=== PATIENT | male | born 1980 | race Caucasian/White ===

== ENCOUNTER 2024-07-09 14:32 | Inpatient (IN) | payer OTHER ==
[2024-07-09 15:14] VITALS: BMI 22.5
[2024-07-09] MEDS ORDERED: POLYETHYLENE GLYCOL (HEALTHYLAX) 3350 17 GM PACKET PO PRN (17:18)
[2024-07-09] MEDS ORDERED: ONDANSETRON *ODT* 4 MG TABLET SL PRN (17:18)
[2024-07-09] MEDS ORDERED: BENZONATATE 200 MG CAPSULE PO PRN (17:18)
[2024-07-09] MEDS ORDERED: NALOXONE (NARCAN) HCL 4 MG/0.1 ML SPRAY NS PRN (17:18)
[2024-07-09] MEDS ORDERED: BISMUTH SUBSALICYLATE 524 MG/30 ML PO PRN (17:18)
[2024-07-09] MEDS ORDERED: IBUPROFEN 400 MG TABLET (FP) PO PRN (17:18)
[2024-07-09] MEDS ORDERED: MAGNESIUM HYDROX 2400MG/30ML ORAL SUSPENSION 30 ML CUP PO PRN (17:18)
[2024-07-09] MEDS ORDERED: guaiFENesin 600 MG TABLET.ER (FP) PO PRN (17:18)
[2024-07-09] MEDS ORDERED: BENZOCAINE/MENTHOL (CHLORASEPTIC ) LOZENGE MM PRN (17:18)
[2024-07-09] MEDS ORDERED: DICYCLOMINE HCL 10 MG CAPSULE PO PRN (17:18)
[2024-07-09] MEDS: hydrOXYzine PAMOATE 25 MG CAPSULE (FP) PO PRN (18:16)
[2024-07-09] MEDS: MELATONIN 5 MG TABLETS PO SCH (23:40)
[2024-07-09] MEDS: THIAMINE 100 MG TABLET PO SCH (23:41)
[2024-07-10] MEDS ORDERED: methaDONE HCL 10 MG TABLET (FOR DETOX USE ONLY) PO PRN (09:07)
[2024-07-10] MEDS: methaDONE HCL 10 MG TABLET (FOR DETOX USE ONLY) PO ONE (09:45)
[2024-07-10] MEDS: PRENATAL VITAMINS W/ FOLIC ACID TABLET (FP) PO SCH (09:46)
[2024-07-10 12:34] LABS: CHLORIDE 101 mmol/L (98-107); POTASSIUM 4.2 mmol/L (3.5-5.1); SODIUM 135 mmol/L (136-145)
[2024-07-10 12:43] LABS: CALCIUM 8.8 mg/dL (8.5-10.1)
[2024-07-10 12:44] LABS: ALBUMIN 2.9 g/dl (3.4-5.0); ANION GAP 6 mmol/L (4-13); BLOOD UREA NITROGEN 10.9 mg/dL (7-18); CO2 28 mmol/L (21-32); GLUCOSE,RANDOM 103 mg/dL (74-106)
[2024-07-10 12:46] LABS: SGPT/ALT 42 U/L (13-61)
[2024-07-10 12:48] LABS: CREATININE 0.6 mg/dL (0.55-1.3); SGOT/AST 27 U/L (15-37)
[2024-07-10 12:49] LABS: BILIRUBIN,TOTAL 0.3 mg/dL (0.2-1); TOT PROT 7.7 g/dl (6.4-8.2)
[2024-07-10 12:51] LABS: ALK PHOS 84 U/L (45-117)
[2024-07-10 12:52] LABS: HEMATOCRIT 36.8 % (35.4-49); HEMOGLOBIN 12.1 GM/dL (11.7-16.9); MCH 27.8 pg (25.7-33.7); MCHC 32.9 g/dl (32.0-35.9); MEAN CELL VOLUME 84.4 fl (80-96); MEAN PLT VOLUME 7.3 fl (7.5-11.1); PLATELET COUNT 559 10^3/uL (134-434); RBC 4.36 M/mm3 (4.00-5.60); RDW 14.4 % (11.9-15.9); WHITE BLOOD COUNT 11.7 K/mm3 (4.0-10.0)
[2024-07-10] MEDS: METHOCARBAMOL 500 MG TABLET PO PRN (19:26)
[2024-07-10] MEDS: cloNIDine HCL 0.1 MG TABLET PO PRN (22:30)
[2024-07-11] MEDS: IBUPROFEN 600 MG TABLET (FP) PO PRN (07:08)
[2024-07-11] MEDS: NICOTINE 21 MG/24 HOURS TOPICAL PATCH TD SCH (13:25)
[2024-07-11] MEDS: ERYTHROMYCIN 0.5% OPHTHALMIC OINTMENT 3.5 GM TUBE OD SCH (15:50)
[2024-07-12] MEDS: methaDONE HCL 10 MG TABLET (FOR DETOX USE ONLY) PO ONE (09:22)
[2024-07-12] MEDS: MAG HYDROX/AL HYDROX/SIMETH 30 ML UNIT-DOSE CUP PO PRN (09:43)
[2024-07-12 11:25] LABS: BASO % 0.6 % (0-2.0); EOS % 0.4 % (0-4.5); HEMATOCRIT 38.6 % (35.4-49); HEMOGLOBIN 12.6 GM/dL (11.7-16.9); LYMPH % 15.6 % (8-40); MCH 27.6 pg (25.7-33.7); MCHC 32.5 g/dl (32.0-35.9); MEAN CELL VOLUME 84.8 fl (80-96); MEAN PLT VOLUME 7.3 fl (7.5-11.1); MONO % 3.9 % (3.8-10.2); NEUT % 79.5 % (42.8-82.8); PLATELET COUNT 520 10^3/uL (134-434); POTASSIUM 3.8 mmol/L (3.5-5.1); RDW 14.7 % (11.9-15.9)
[2024-07-12 11:29] LABS: ALBUMIN 2.8 g/dl (3.4-5.0); CALCIUM 8.4 mg/dL (8.5-10.1)
[2024-07-12 11:30] LABS: BLOOD UREA NITROGEN 11.8 mg/dL (7-18)
[2024-07-12 11:33] LABS: CREATININE 0.8 mg/dL (0.55-1.3)
[2024-07-12 11:34] LABS: BILIRUBIN,TOTAL 0.4 mg/dL (0.2-1); TOT PROT 7.4 g/dl (6.4-8.2)
[2024-07-12 11:53] LABS: RBC 4.55 M/mm3 (4.00-5.60); WHITE BLOOD COUNT 13.3 K/mm3 (4.0-10.0)
[2024-07-12] MEDS: LOPERAMIDE HCL 2 MG CAPSULE PO PRN (14:41)
[2024-07-12] MEDS: NICOTINE POLACRILEX 2 MG GUM BUC PRN (20:52)
[2024-07-13 11:04] LABS: PH,URINE 5.5 (5.0-8.0); URINE APPEARANCE CLEAR; URINE BILIRUBIN NEGATIVE (NEGATIVE); URINE COLOR YELLOW; URINE GLUCOSE (UA) NEGATIVE (NEGATIVE); URINE KETONE NEGATIVE (NEGATIVE); URINE LEUK ESTERASE NEGATIVE (NEGATIVE); URINE NITRITE NEGATIVE (NEGATIVE); URINE PROTEIN TRACE (NEGATIVE); URINE UROBILINOGEN 0.2 mg/dL (0.2-1.0)
[2024-07-13] MEDS: ACETAMINOPHEN 325 MG TABLET (FP) PO PRN (15:57)
[2024-07-14] MEDS: methaDONE HCL 10 MG TABLET (FOR DETOX USE ONLY) PO ONE (09:53)
[2024-07-14] MEDS: LIDOCAINE 5% TOPICAL PATCH TP SCH (11:01)
[2024-07-14] MEDS: MELATONIN 5 MG TABLETS PO ONE (21:02)
[2024-07-14] MEDS: LIDOCAINE PATCH REMOVAL MC SCH (21:02)
[2024-07-15 09:19] VITALS: BP 126/79; PULSE 78; RESP 17; TEMP 98.4
== END 2024-07-15 10:10 | disposition home or self-care (01) | DRG 773 ==
LOC: YASAS 14:32 → Y3N 17:56
PROVIDERS: ADMIT Allergy & Immunology; ATTEND Allergy & Immunology
PROC: HZ2ZZZZ Detoxification Services for Substance Abuse Treatment (ICD-10-PCS; principal; 2024-07-09)
DX: F11.23 Opioid dependence with withdrawal (principal); F14.10 Cocaine abuse, uncomplicated; F12.10 Cannabis abuse, uncomplicated; F17.210 Nicotine dependence, cigarettes, uncomplicated; F31.9 Bipolar disorder, unspecified; F19.24 Other psychoactive substance dependence with psychoactive substance-induced mood disorder; F41.9 Anxiety disorder, unspecified; D72.829 Elevated white blood cell count, unspecified; D75.839 Thrombocytosis, unspecified; G47.00 Insomnia, unspecified; Z59.00 Homelessness unspecified
CPT/HCPCS: 36415; 71045-TC-FY; 80053; 80305; 80307; 81003; 82962; 85025; 85027; 86780; 93005; 93010

== ENCOUNTER 2024-10-22 12:35 | Inpatient (IN) | payer OTHER ==
[2024-10-22 12:58] VITALS: BMI 25.8
[2024-10-22] MEDS ORDERED: guaiFENesin 600 MG TABLET.ER (FP) PO PRN (13:30)
[2024-10-22] MEDS ORDERED: POLYETHYLENE GLYCOL (HEALTHYLAX) 3350 17 GM PACKET PO PRN (13:30)
[2024-10-22] MEDS ORDERED: MAG HYDROX/AL HYDROX/SIMETH 30 ML UNIT-DOSE CUP PO PRN (13:30)
[2024-10-22] MEDS ORDERED: BENZOCAINE/MENTHOL (CHLORASEPTIC ) LOZENGE MM PRN (13:30)
[2024-10-22] MEDS ORDERED: NALOXONE (NARCAN) HCL 4 MG/0.1 ML SPRAY NS PRN (13:30)
[2024-10-22] MEDS ORDERED: DOCUSATE SODIUM 100 MG CAPSULE (FP) PO PRN (13:30)
[2024-10-22] MEDS ORDERED: IBUPROFEN 400 MG TABLET (FP) PO PRN (13:30)
[2024-10-22] MEDS ORDERED: LOPERAMIDE HCL 2 MG CAPSULE PO PRN (13:30)
[2024-10-22] MEDS ORDERED: BENZONATATE 200 MG CAPSULE PO PRN (13:30)
[2024-10-22] MEDS: NICOTINE POLACRILEX 2 MG GUM BUC PRN (15:26)
[2024-10-22] MEDS ORDERED: NICOTINE POLACRILEX 2 MG GUM ONE (15:26)
[2024-10-22] MEDS: MELATONIN 5 MG TABLETS PO SCH (21:13)
[2024-10-22] MEDS: THIAMINE 100 MG TABLET PO SCH (21:13)
[2024-10-22] MEDS: IBUPROFEN 600 MG TABLET (FP) PO PRN (21:14)
[2024-10-23] MEDS ORDERED: methaDONE HCL 10 MG TABLET PO SCH (09:00)
[2024-10-23] MEDS: methaDONE 80 MG, methaDONE 20 MG PO SCH (10:14)
[2024-10-23] MEDS: PRENATAL VITAMINS W/ FOLIC ACID TABLET (FP) PO SCH (10:15)
[2024-10-23 11:38] LABS: HEMATOCRIT 35.8 % (40.1-51.0); MCHC 30.7 g/dl (32.3-36.5); MEAN CELL VOLUME 86.9 fl (79.0-92.2); PLATELET COUNT 467 x10^3/uL (163-337); RDW 15.5 % (12.1-15.9)
[2024-10-23 11:42] LABS: POTASSIUM 3.8 mmol/L (3.5-5.1)
[2024-10-23 11:42] LABS: EPI CELLS 20 /uL (0-25.1); HYALINE CASTS 4 /uL (0-3.1); PH,URINE 6.5 (5.0-8.0); URINE APPEARANCE CLOUDY; URINE BACTERIA 21 /uL (0-1359); URINE BILIRUBIN NEGATIVE (NEGATIVE); URINE COLOR YELLOW; URINE GLUCOSE (UA) NEGATIVE (NEGATIVE); URINE KETONE TRACE (NEGATIVE); URINE LEUK ESTERASE 1+ (NEGATIVE); URINE NITRITE NEGATIVE (NEGATIVE); URINE PROTEIN 1+ (NEGATIVE); URINE WBC 132 /uL (0-25.8)
[2024-10-23 11:46] LABS: BLOOD UREA NITROGEN 13.7 mg/dL (7-18)
[2024-10-23 11:47] LABS: ALBUMIN 2.6 g/dl (3.4-5.0); CALCIUM 8.9 mg/dL (8.5-10.1)
[2024-10-23 11:51] LABS: BILIRUBIN,TOTAL 0.3 mg/dL (0.2-1)
[2024-10-23 11:52] LABS: CREATININE 0.8 mg/dL (0.55-1.3)
[2024-10-23 11:53] LABS: TOT PROT 6.9 g/dl (6.4-8.2)
[2024-10-23 12:50] LABS: URINE CRYSTALS PRESENT /hpf; URINE RBC 134 /uL (0-23.9)
[2024-10-23] MEDS: FLU VACCINE (FLULAVAL) PF 45 MCG/0.5 ML SYRINGE 2024-2025 IM ONE (14:19)
[2024-10-23] MEDS: PNEUMOC 20-VAL CONJ-DIP CRM/PF 0.5 ML SYRINGE IM ONE (14:22)
[2024-10-23] MEDS: hydrOXYzine PAMOATE 25 MG CAPSULE (FP) PO PRN (14:27)
[2024-10-24] MEDS ORDERED: cloNIDine HCL 0.1 MG TABLET PO PRN (15:28)
[2024-10-24] MEDS: GABAPENTIN 100 MG CAPSULE PO SCH (15:57)
[2024-10-24] MEDS: amLODIPine BESYLATE 5 MG TABLET (FP) PO SCH (15:57)
[2024-10-25] MEDS: BACLOFEN 10 MG TABLET (FP) PO SCH (10:12)
[2024-10-28] MEDS: MAGNESIUM HYDROX 2400MG/30ML ORAL SUSPENSION 30 ML CUP PO PRN (10:35)
[2024-10-28] MEDS: LIDOCAINE 5% TOPICAL PATCH TP SCH (13:49)
[2024-10-28] MEDS: BACLOFEN 10 MG TABLET (FP) PO SCH (21:14)
[2024-10-28] MEDS: LIDOCAINE PATCH REMOVAL MC SCH (21:14)
[2024-10-28] MEDS: MELATONIN 5 MG TABLETS PO SCH (21:14)
[2024-10-29] MEDS: amLODIPine BESYLATE 10 MG TABLET (FP) PO SCH (10:17)
[2024-10-30] MEDS: GABAPENTIN 300 MG CAPSULE PO SCH ×2 (14:46→21:19)
[2024-10-31] MEDS: ACETAMINOPHEN 325 MG TABLET (FP) PO PRN (21:22)
[2024-11-04] MEDS: GABAPENTIN 400 MG CAPSULE PO SCH (12:33)
[2024-11-09 05:36] VITALS: RESP 16
[2024-11-10] MEDS: NICOTINE POLACRILEX 2 MG LOZENGE BC PRN (21:28)
[2024-11-11] MEDS: GABAPENTIN 300 MG CAPSULE PO SCH (13:37)
[2024-11-12 06:14] VITALS: TEMP 97.5
[2024-11-12 09:28] VITALS: BP 125/65; PULSE 91
== END 2024-11-12 09:32 | disposition home or self-care (01) | DRG 772 ==
LOC: YASAS 12:35 → Y3W 15:22
PROVIDERS: ADMIT Psychiatry & Neurology Pain Medicine; ATTEND Psychiatry & Neurology Pain Medicine
PROC: HZ42ZZZ Group Counseling for Substance Abuse Treatment, Cognitive-Behavioral (ICD-10-PCS; principal; 2024-10-22)
DX: F11.20 Opioid dependence, uncomplicated (principal); F14.20 Cocaine dependence, uncomplicated; F12.20 Cannabis dependence, uncomplicated; F17.210 Nicotine dependence, cigarettes, uncomplicated; F31.9 Bipolar disorder, unspecified; F19.24 Other psychoactive substance dependence with psychoactive substance-induced mood disorder; G47.00 Insomnia, unspecified; I10 Essential (primary) hypertension; R20.2 Paresthesia of skin; Z59.00 Homelessness unspecified
CPT/HCPCS: 36415; 71046-TC-FY; 80053; 80305; 80307; 81003; 85027; 86780; 87811; 90656; 90677; J0475